=== PATIENT | male | born 1950 | race Caucasian/White ===

== ENCOUNTER 2024-03-25 19:29 | Emergency (ER) | payer OTHER, SELFPAY ==
[2024-03-25] VITALS (17 sets, daily range): BP systolic 89–127; BP diastolic 55–92; BMI 30.3
[2024-03-25 20:31] LABS: % Basophils 0.9 % (0-2); % Eosinophils 4.1 % (0-6); % Immature Granulocytes 0.5 % (0-0.5); % Lymphocytes 23.2 % (20.5-51.1); % Monocytes 10.1 % (1.7-9.3); % Neutrophils 61.2 % (42.2-75.2); Absolute Basophils 0.1 10^3/uL (0-0.2); Absolute Eosinophils 0.5 10^3/uL (0-0.7); Absolute Immature Granulocytes 0.1 10^3/uL (0-0.05); Absolute Monocytes 1.3 10^3/uL (0.1-0.6); Hematocrit 39.9 % (39.0-52.0); Hemoglobin 13.9 g/dL (13.0-18.0); Mean Corp Hgb Conc. 34.8 g/dL (33.0-37.0); Mean Corpuscular Hgb 29.8 pg (27.0-31.0); Mean Corpuscular Volume 85.6 fL (80.0-94.0); Mean Platelet Volume 9.1 fL (7.4-10.4); Nucleated Red Blood Cells % 0 % (-); Platelet Count 215 10^3/uL (130-400); Red Blood Cell Count 4.66 10^6/uL (4.70-6.10); Red Cell Dist. Width 13.7 % (11.5-14.5)
[2024-03-25 20:42] LABS: ALT (SGPT) 12 U/L (0-50); AST (SGOT) 19 U/L (17-59); Albumin 3.6 g/dl (3.5-5.0); Alkaline Phosphatase 120 U/L (38-126); Blood Urea Nitrogen 24 mg/dl (9-20); Calcium 8.8 mg/dl (8.4-10.2); Carbon Dioxide 24 mmol/L (22-30); Chloride 105 mmol/L (98-107); Estimated Creatinine Clearance 54 ml/min; Glucose 108 mg/dl (70-99); Potassium 4.2 mmol/L (3.5-5.1); Sodium 136 mmol/L (135-145); Total Bilirubin 0.5 mg/dl (0.2-1.3); Total Protein 6.3 g/dl (6.3-8.2); eGFR 58.37
[2024-03-25 20:54] LABS: Troponin I 0.015 ng/ml
--- NOTE | 2024-03-25 22:11 | ED.GENMED ---
History of Present Illness
<EVERETT Frye Jr. Last Filed: 03/26/24 01:47>
General
Chief Complaint: Change in Mental Status
Source: patient and family
Exam Limitations: none
Time Seen by Provider: 03/25/24 20:13
Nursing documentation reviewed up to this point in time: agreed with
Travel History
Have you had any contact with someone who has COVID-19?: No
Do you have any symptoms of coronavirus? Fever > 100 degrees, chills, cough, shortness of breath, sore throat, loss of taste or smell, muscle aches, or headache?: No
History of Present Illness
History of Present Illness:
73-year-old male past medical history of previous stroke COPD hypertension hyperlipidemia heart disease currently on Plavix and aspirin presenting to the emergency department today with concerns of an episode of slurred speech prior to arrival as
well as right-sided facial he claims that this is completely resolved otherwise feels well at this point. Denies any specific head trauma.
Past History
<EVERETT Frye Jr. Last Filed: 03/26/24 01:47>
Past History
ED Past Medical History: Arrthythmia (?), CVA, HTN, Hypercholesterolemia and Other (History of dizziness, migraines, difficulty breathing, peripheral vascular disease, fainting episodes, arthritis)
ED Past Surgical History: Cardiac ( history of cardiac catheterization with stents) and Orthopedic (Patient had meniscal tears of both knees repaired over 10 years ago. Has had no problems with knees since until this incident. )
Social History
Tobacco: Former smoker ([id number] history, quit approximately one year ago)
Alcohol: None
Drug: None
Personal:
Living: with family
Employment: Employed
Family History
Family History: Hypertension
Review of Systems
<EVERETT Frye Jr. Last Filed: 03/26/24 01:47>
Review of Systems
Allergies reviewed?: Yes
All Other Systems: ROS reviewed and negative except as documented in HPI and ROS
Phy Exam
<Rodolfo Rojas Jr., PA-C - Last Filed: 03/26/24 01:47>
Physical Exam
Physical Exam:
GENERAL: Alert , in no apparent distress
EYE: pupils equal and reactive
NECK: Supple, no significant adenopathy.
ENT: o/p clr, mmm.
CARDIAC: Regular rate and rhythm .
LUNGS: Clear breath sounds bilaterally, no acute respiratory distress, no wheezes/rales/rhonchi
ABDOMEN: Soft, without focal tenderness, no r/g, no cvat
NEUROLOGICAL: Alert and oriented, no focal neuro deficits, 5 out of 5 upper and lower extremity strength normal sensation when palpating bilaterally normal finger-nose and [id number] no pronator drift.
SKIN: Warm and dry, skin intact.
MUSCULOSKELETAL: No edema, well perfused.
PSYCH: Normal and appropriate interaction.
Course
<Rodolfo Rojas Jr., PA-C - Last Filed: 03/26/24 01:47>
Orders/Labs/Results
Orders:
Orders
03/25/24 19:37
ECG [Electrocardiogram (*1)] Urgent
Reason for Study: Shortness of Breath
EKG- Treatment ONCE
03/25/24 20:21
CT Head W/o Iv Contrast Urgent
Comment:
Reason For Exam: slurred speech car [employer]
03/25/24 20:25
Complete Blood Count/With Diff Urgent
Comprehensive Metabolic Panel Urgent
Troponin I Urgent
03/25/24 22:15
Desmopressin [Ddavp] 34 mcg 0.9% Sodium Chloride 50 ml [Nss] 50 ml IV NOW
Levetiracetam Injectable [Keppra] 1,000 mg IV NOW STA
03/25/24 22:17
* Blood Bank Products Urgent
Blood Bank Products: *Plt Single Donor Leuko
Quantity: 1
Transfuse Today: Yes
Reason: Bleeding
03/25/24 22:23
Type+Screen Urgent
PT/INR [Prothrombin Time] Urgent
PTT Urgent
Desmopressin [Ddavp] 34 mcg 0.9% Sodium Chloride 50 ml [Nss] 50 ml IV NOW
03/25/24 23:06
ECG [Electrocardiogram (*1)] Urgent
Reason for Study: Chest Pain
EKG- Treatment ONCE
03/25/24 23:09
Mag Hydrox/Al Hydrox/Simeth [Maalox] 30 ml .ROUTE .STK-MED ONE
03/25/24 23:10
0.9% Sodium Chloride 500 ml [Nss] 500 ml IV BOLUS
Mag Hydrox/Al Hydrox/Simeth [Maalox] 30 ml PO NOW STA
Abnormal Lab Results
03/25/24
20:25
WBC 13.0 H 10^3/uL
(4.8-10.8)
RBC 4.66 L 10^6/uL
(4.70-6.10)
Abs Immat Gran (auto) 0.1 H 10^3/uL
(0-0.05)
Absolute Neuts (auto) 8.0 H 10^3/uL
(1.4-6.5)
Absolute Monos (auto) 1.3 H 10^3/uL
(0.1-0.6)
Monocytes % 10.1 H %
(1.7-9.3)
BUN 24 H mg/dl
(9-20)
Glucose 108 H mg/dl
(70-99)
03/25/24 20:25
03/25/24 20:25
Vital Signs
Initial and Last Documented VS:
Initial Vital Signs
Temp Pulse Resp BP Pulse Ox
97.8 F 88 19 96/63 96
03/25/24 19:33 03/25/24 19:33 03/25/24 19:33 03/25/24 19:33 03/25/24 19:33
Last Documented Vital Signs
Temp Pulse Resp BP Pulse Ox
98.0 F 80 20 90/49 98
03/26/24 00:35 03/26/24 00:35 03/26/24 00:35 03/26/24 00:35 03/26/24 00:35
<Linden Granados MD - Last Filed: 03/26/24 00:16>
Orders/Labs/Results
Orders:
Orders
03/25/24 19:37
ECG [Electrocardiogram (*1)] Urgent
Reason for Study: Shortness of Breath
EKG- Treatment ONCE
03/25/24 20:21
CT Head W/o Iv Contrast Urgent
Comment:
Reason For Exam: slurred speech [place]
03/25/24 20:25
Complete Blood Count/With Diff Urgent
Comprehensive Metabolic Panel Urgent
Troponin I Urgent
03/25/24 22:15
Desmopressin [Ddavp] 34 mcg 0.9% Sodium Chloride 50 ml [Nss] 50 ml IV NOW
Levetiracetam Injectable [Keppra] 1,000 mg IV NOW STA
03/25/24 22:17
* Blood Bank Products Urgent
Blood Bank Products: *Plt Single Donor Leuko
Quantity: 1
Transfuse Today: Yes
Reason: Bleeding
03/25/24 22:23
Type+Screen Urgent
PT/INR [Prothrombin Time] Urgent
PTT Urgent
Desmopressin [Ddavp] 34 mcg 0.9% Sodium Chloride 50 ml [Nss] 50 ml IV NOW
03/25/24 23:06
ECG [Electrocardiogram (*1)] Urgent
Reason for Study: Chest Pain
EKG- Treatment ONCE
03/25/24 23:09
Mag Hydrox/Al Hydrox/Simeth [Maalox] 30 ml .ROUTE .STK-MED ONE
03/25/24 23:10
0.9% Sodium Chloride 500 ml [Nss] 500 ml IV BOLUS
Mag Hydrox/Al Hydrox/Simeth [Maalox] 30 ml PO NOW STA
Abnormal Lab Results
03/25/24
20:25
WBC 13.0 H 10^3/uL
(4.8-10.8)
RBC 4.66 L 10^6/uL
(4.70-6.10)
Abs Immat Gran (auto) 0.1 H 10^3/uL
(0-0.05)
Absolute Neuts (auto) 8.0 H 10^3/uL
(1.4-6.5)
Absolute Monos (auto) 1.3 H 10^3/uL
(0.1-0.6)
Monocytes % 10.1 H %
(1.7-9.3)
BUN 24 H mg/dl
(9-20)
Glucose 108 H mg/dl
(70-99)
03/25/24 20:25
03/25/24 20:25
Vital Signs
Initial and Last Documented VS:
Initial Vital Signs
Temp Pulse Resp BP Pulse Ox
97.8 F 88 19 96/63 96
03/25/24 19:33 03/25/24 19:33 03/25/24 19:33 03/25/24 19:33 03/25/24 19:33
Last Documented Vital Signs
Temp Pulse Resp BP Pulse Ox
98.0 F 80 20 90/49 98
03/26/24 00:35 03/26/24 00:35 03/26/24 00:35 03/26/24 00:35 03/26/24 00:35
<Rodolfo Rojas Jr., PA-C - Last Filed: 03/26/24 01:47>
MDM/Problems Addressed
MDM/Problems Addressed:
73-year-old male presenting to the emergency department after an episode of slurred speech and right-sided facial droop prior to arrival that is since resolved. Here vital signs showing slightly low blood pressure but otherwise vital signs are
normal. Labs unremarkable head CT showing subdural. No progressive symptoms in the ER [facility] was immediately contacted for transfer for neurosurgical care. Stable throughout ER stay. Started on Keppra, DDAVP and given platelets.
<Rodolfo Rojas Jr., PA-C - Last Filed: 03/26/24 01:47>
*Critical Care Note
Total Time (30-74mins, 75-104mins- exclusive of procedures): Not Applicable
ED Attending Note
<Rodolfo Rojas Jr., PA-C - Last Filed: 03/26/24 01:47>
-
Portions of this chart may have been created with voice recognition software.� Occasional wrong word or��sound alike� substitutions may have occurred due to the inherent limitations of voice recognition software.
<Linden Granados MD - Last Filed: 03/26/24 00:16>
ED Attending Note
Patient seen and examined by attending physician: Yes
I performed the substantive portion of visit, reviewed & personally made and approve the management plan that is documented in note by myself or ABEL.: Yes
ED Attending Note:
73-year-old male with some confusion slurred speech earlier. No known trauma. Patient does take aspirin and Plavix. Symptoms seem to have improved per the family
Neurologic exam is nonfocal. Patient speech is normal. Cranial nerves II through XII intact. No drift. Follows commands. Fully awake and alert. No signs of trauma
Significant subdural by CT scan. Platelets are stable. Discussed with patient and family. They would prefer [facility]. We called for transfer. Transfer to Dr. Gonzalez. We have ordered DDAVP, Keppra, platelets. Awaiting helicopter and transport.
CC=35
2320... Patient slowly became hypotensive. Also appeared to have some more difficulty with his speech. Otherwise nonfocal. However fully awake alert. Some mild indigestion. EKG was done which is nonspecific. States he gets indigestion
intermittently. Small fluid bolus. Blood pressure now up to 98. I updated the transfer team on his changes. Hoping to expedite transfer. They state they have a bed now and will activate for transfer
0015... Apparently the helicopter is down. Difficulty getting ALS. However if the nurses sent they will be here within 30 minutes. Patient has been clinically stable. Blood pressure low but stable. Patient nontoxic in appearance
Discharge Plan
Departure
Patient Disposition: [facility]
Date of Disposition: 03/25/24
Time of Disposition: 22:19
Patient with high blood pressure during this ER visit?: No
Condition: Good
Covid-19: Not Applicable
Discharge Problem:
Subdural hematoma
Prescriptions:
No Action
atorvastatin 40 MG tablet
40 mg PO DAILY
metoprolol succinate 100 MG tablet extended release 24 hr
100 mg PO DAILY Qty: 30 0RF
clopidogrel 75 MG tablet
75 mg PO DAILY Qty: 90 3RF
aspirin 81 MG tablet,delayed release (DR/EC)
81 mg PO DAILY Qty: 0 0RF
losartan 25 MG tablet
25 mg PO DAILY Qty: 90 3RF
nitroglycerin 0.4 MG tablet, sublingual
0.4 mg sublingual [id number] PRN (Reason: chest pain) Qty: 30 3RF
fluticasone propionate 1 SPRAY spray,suspension
2 spray intranasal DAILY
multivitamin with folic acid [Tab-A-Patricia] 1 TABLET tablet
1 tab PO DAILY
albuterol sulfate 2.5 MG/3 ML solution for nebulization
2.5 mg inhalation TID PRN (Reason: sob)
albuterol sulfate 1 PUFF HFA aerosol inhaler
1 puff inhalation R Q4HPRN PRN (Reason: sob)
azelastine 1 SPRAY aerosol,spray
0 spray intranasal BID Qty: 1 0RF
cefuroxime axetil 500 MG tablet
500 mg PO BID Qty: 10 0RF
loratadine 10 MG tablet
10 mg PO DAILY Qty: 30 0RF
prednisone 10 MG tablet
10 mg PO .TAPER Qty: 30 0RF
Rx Instructions:
Take 40mg daily x3days, 30mg daily x3days,
20mg daily x3days, 10mg daily x3days.
guaifenesin 200 MG/10 ML liquid
200 mg PO Q4HPRN PRN (Reason: cough) 0RF
budesonide-formoterol [Symbicort] 1 PUFF HFA aerosol inhaler
2 puff inhalation R BID Qty: 1 0RF
Hospital Transfer
Other hospital: [facility]
I certify that the patient requires transfer: Yes
Discussed case with accepting physician: Carlos
Reason for transfer: higher level of care, medical necessity, availability of service and specialties available
Interventions
Interventions:
*Risk Screen - Suicide Last Done: 03/25/24 19:33
*General Assessment Last Done: 03/25/24 19:33
*Neglect/Abuse Screening Last Done: 03/25/24 19:33
ED- Fall Risk Assessment Last Done: 03/25/24 20:10
*ED COVID-19 Vaccine History Last Done: 03/25/24 19:33
ED- Pulmonary Assessment Last Done: 03/25/24 20:10
ED- Neurological Assessment Last Done: 03/25/24 20:09
ED- Cardiac Assessment Last Done: 03/25/24 20:10
ED Swallowing Screen Last Done: 03/25/24 20:00
Discharge Date and Time
Print Language: [id number]
[2024-03-25] MEDS: KEPPRA 1000 MG IV (22:24)
[2024-03-25] MEDS: DDAVP 58.5 MCG IV (22:36)
[2024-03-25 22:48] LABS: APTT 31.8 Sec (23.4-35.0); INR 1.08; PT 13.8 Sec (11.4-14.6)
[2024-03-25] MEDS: MAALOX 30 ML PO (23:10)
[2024-03-25] MEDS: NSS 500 IV (23:11)
[2024-03-26] VITALS: BP 113/62
[2024-03-26 00:14] VITALS: BP 99/72
[2024-03-26 00:15] VITALS: BP 99/72
[2024-03-26 00:30] VITALS: BP 90/49
[2024-03-26 00:35] VITALS: BP 90/49
== END 2024-03-26 00:45 | disposition short-term general hospital (02) ==
LOC: EMR 19:29
PROVIDERS: Physician Assistant; EMERGENCY PHYSICIAN Emergency Medicine
DX: I62.01 Nontraumatic acute subdural hemorrhage (principal); R47.81 Slurred speech; R29.810 Facial weakness; R06.02 Shortness of breath; R41.0 Disorientation, unspecified; K30 Functional dyspepsia; I95.9 Hypotension, unspecified; E78.00 Pure hypercholesterolemia, unspecified; I10 Essential (primary) hypertension; G43.909 Migraine, unspecified, not intractable, without status migrainosus; M19.90 Unspecified osteoarthritis, unspecified site; I73.9 Peripheral vascular disease, unspecified; J44.9 Chronic obstructive pulmonary disease, unspecified; Z95.5 Presence of coronary angioplasty implant and graft; Z87.891 Personal history of nicotine dependence; Z86.73 Personal history of transient ischemic attack (TIA), and cerebral infarction without residual deficits; Z79.02 Long term (current) use of antithrombotics/antiplatelets; Z79.82 Long term (current) use of aspirin
CPT/HCPCS: 99285; 36430; 70450; 80053; 84484; 85025; 85610; 85730; 86850; 86900; 86901; 93005; J2597; P9073

== ENCOUNTER → 2024-10-08 14:38 | Outpatient (REF) | payer OTHER, SELFPAY | LOC: HWRCS 14:38 | PROVIDERS: ATTENDING PHYSICIAN Internal Medicine Interventional Cardiology; FAMILY PHYSICIAN Family Medicine | DX: I25.2 Old myocardial infarction (principal) | CPT/HCPCS: 93306 ==

== ENCOUNTER → 2025-10-16 10:46 | Outpatient (REF) | payer OTHER, SELFPAY | LOC: HWRCS 10:46 | PROVIDERS: ATTENDING PHYSICIAN Internal Medicine Interventional Cardiology; FAMILY PHYSICIAN Family Medicine | DX: I25.2 Old myocardial infarction (principal) | CPT/HCPCS: 93306 ==